=== PATIENT | female | born 1980 | race Caucasian/White ===

== ENCOUNTER → 2020-09-06 | Outpatient (CLI) | payer BC | LOC: MAMO 08-11 15:00 | DX: Z12.31 Encounter for screening mammogram for malignant neoplasm of breast (principal) | CPT/HCPCS: 77063; 77067 ==

== ENCOUNTER → 2020-12-23 | Outpatient (CLI) | payer BC ==
[2020-12-23 06:27] LABS: HEMOGLOBIN 14.5 gm/dl (12.3-15.3); RED BLOOD COUNT 4.39 M/UL (4.00-5.10)
[2020-12-23 06:48] LABS: BUN/CREATININE RATIO 13 (0-10)
== END ==
LOC: LAB 06:08
PROVIDERS: Nurse Practitioner Family
DX: Z13.220 Encounter for screening for lipoid disorders (principal); R53.83 Other fatigue; E55.9 Vitamin D deficiency, unspecified
CPT/HCPCS: 36415; 80053; 80061; 84443; 85025